=== PATIENT | male | born 1995 | race Caucasian/White ===

== ENCOUNTER 2017-04-21 15:01 | Emergency (ER) | payer MEDICAID ==
[~2017-04-21] VITALS: Ht 180.3 cm; Wt 68.0 kg
[~2017-04-21 15:01] MED LIST: AUGMENTIN PO; NOMEDS XX; TYLENOL W/120 ML/BOT PO
--- OUTSIDE RECORDS SUMMARY | 2017-04-21 15:23 | External Medical Summary Rpt ---
Author Author , Organization [employer] Address Unknown Phone Unavailable Care Team Providers Care Office Clin Asst Name Role Phone ASLAM UZM, ASLAM UZM Unavailable Unavailable ASLAM UZM, ASLAM UZM Unavailable Unavailable BEINEKE SAMMY, BEINEKE Unavailable Unavailable SAMMY [facility], Unavailable Unavailable [facility] NEMO LEO Unavailable Unavailable LYDIA [facility] Unavailable Unavailable HOSPITA, [facility] SOMERS, SOMERS Unavailable Unavailable [facility] Un[facility] Unavailable INC, [facility] Unavailable Unavailable [facility], [facility] Aditi Chester MD, Unavailable Unavailable Aditi [facility], Unavailable Unavailable PLL, [facility], [facility] Unavailable Unavailable EMERGENCY PHYS, [facility] NIGHAT HEA, NIGHAT Unavailable Unavailable HEA NIGHAT HEA, NIGHAT Unavailable Unavailable HEA Purpose Continuity of Care Document - 03-03-2013 through 2016 Problems Code Diagnosis DOS Provider Status I880 NONSPECIFIC 11-04-2016 [facility] LYMPHADENIT IS R102 PELVIC AND 11-04-2016 [facility] EMERGENCY PAIN PHYS R1030 LOWER 11-04-2016 [facility] [place] [facility] PAIN UNSPECIFIED R1084 GENERALIZED 11-04-2016 [facility] [facility] R109 UNSPECIFIED 11-04-2016 [facility] EMERGENCY PAIN PHYS R110 NAUSEA 11-04-2016 [facility] Z720 TOBACCO USE 11-04-2016 [facility]76 PAIN IN 09-05-2016 [facility] [id number] SPRAIN UNS 09-05-2016 [facility] HAND INITIAL ENC [id number] LACERATION 03-14-2016 NIGHAT HEA W/O FB OTHER PART HEAD INITIAL ENC [id number] PAIN IN 02-08-2016 ASLAM UZM RIGHT WRIST [id number] UNSPECIFIED 02-08-2016 ASLAM UZM SPRAIN RIGHT WRIST INITIAL ENCOUNTER 846.0 846.0 03-03-2013 Henri SPRAIN [facility] 847.0 847.0 03-03-2013 Henri SPRAIN OF [facility] 850.0 850.0 03-03-2013 Henri CONCUSSION [facility] W/O [facility] E849.4 E849.4 03-03-2013 Henri ACCID IN [facility] AREA E917.0 E917.0 03-03-2013 Henri STRUCK IN [facility] Allergies, Adverse Reactions, Alerts Type Drug Allergy Adverse Reaction to Substance Substance Reaction Severity No Known Allergies - Unknown Mild Nka Vital Signs 03-03-2013 20:53 Name Value Interpretat Reference Comment ion Range BP 84 mm[Hg] Diastolic BP Systolic 157 mm[Hg] Heart 62 /min Rate/Pulse Procedures Procedure [place] [address] [facility] & 7 RADIOLOGY PELVIS W/CONTRAS T MATERIAL RADEX 48440 NIKKIE GERARDOINEKE HAND 6 MEDICAL SAMMY MINIMUM 3 IMAGING VIEWS ASS SIMPLE 66532 NIGHAT NIGHAT REPAIR 6 HEA HEA F/E/E/N/L /M 2.5CM/< RADEX 99081 ASLAM UZM ASLAM UZM WRIST 6 COMPLETE MINIMUM 3 VIEWS Encounters Encounter Start End Date Code Location Performer Type Date HOSPITAL [facility] - 7 7 N OUTPATIEN COMMUNTIY T HOSPITA EMERGENCY [address]16 [facility] 7 7 N DEPARTMEN COMMUNTIY T VISIT HOSPITA HIGH/URGE NT SEVERITY [facility]OSPITAL [facility] - 6 6 [facility] OUTPATIEN INC T EMERGENCY 43239 [facility] 6 6 [facility] DEPARTMEN INC T VISIT LOW/MODER SEVERITY EMERGENCY 95150 [facility] CHE[facility] 6 6 PHYSICIAN LYDIA [facility] S, PLLC T VISIT MODERATE SEVERITY EMERGENCY 42659 NIGHAT DISLA 6 6 MARC WILLETT T VISIT LOW/MODER SEVERITY OFFICE 08433 CODY LUNDBERG 6 6 T NEW 30 MINUTES Emergency JOSÉ MNAUEL Chester MD (ER) 3 20:15 3 20:58 [facility]
--- OUTSIDE RECORDS SUMMARY | 2017-04-21 15:23 | External Medical Summary Rpt ---
Author Author , Organization [employer] Address Unknown Phone Unavailable Care Team Providers Care Lozenge Dough Mixer Name Role Phone ASLAM UZM, ASLAM UZM Unavailable Unavailable ASLAM UZM, ASLAM UZM Unavailable Unavailable BEINEKE SAMMY, BEINEKE Unavailable Unavailable SAMMY [facility], Unavailable Unavailable [facility] NEMO LEO Unavailable Unavailable LYDIA [facility] Unavailable Unavailable HOSPITA, [facility] SOMERS, SOMERS Unavailable Unavailable [facility] Unavailable Unavailable INC, [facility] Unavailable Unavailable [facility], [facility] Aditi Chester MD, Unavailable Unavailable Aditi [facility], Unavailable Unavailable PLL, [facility], [facility] Unavailable Unavailable EMERGENCY PHYS, [facility] NIGHAT HEA, NIGHAT Unavailable Unavailable HEA NIGHAT HEA, NIGHAT Unavailable Unavailable HEA Purpose Continuity of Care Document - 03-03-2013 through 2016 Problems Code Diagnosis DOS Provider Status I880 NONSPECIFIC 11-04-2016 [facility] PH[facility] LYMPHADENIT IS R102 PELVIC AND 11-04-2016 [facility] EMERGENCY PAIN PHYS R1030 LOWER 11-04-2016 [facility] [place] [facility] PAIN UNSPECIFIED R1084 GENERALIZED 11-04-2016 [place] [facility] R109 UNSPECIFIED 11-04-2016 [facility] EM[facility]GENCY PAIN PHYS R110 NAUSEA 11-04-2016 [facility] Z720 TOBACCO USE 11-04-2016 [facility] PAIN IN 09-05-2016 [facility] [id number] SPRAIN UNS 09-05-2016 [facility] HAND INITIAL ENC [id number] LACERATION 03-14-2016 NIGHAT HEA W/O FB OTHER PART HEAD INITIAL ENC [id number] PAIN IN 02-08-2016 ASLAM UZM RIGHT WRIST [id number] UNSPECIFIED 02-08-2016 ASLAM UZM SPRAIN RIGHT WRIST INITIAL ENCOUNTER 846.0 846.0 03-03-2013 Henri SPRAIN [facility] 847.0 847.0 03-03-2013 Henri SPRAIN OF [facility] 850.0 850.0 03-03-2013 Henri CONCUSSION [facility] W/O [facility] E849.4 E849.4 03-03-2013 Henri ACCID IN [facility] AREA E917.0 E917.0 03-03-2013 Henri STRUCK IN [facility] Allergies, Adverse Reactions, Alerts Type Drug Allergy Adverse Reaction to Substance Substance Reaction Severity No Known Allergies - Unknown Mild Nka Vital Signs 03-03-2013 20:53 Name Value Interpretat Reference Comment ion Range BP 84 mm[Hg] Diastolic BP Systolic 157 mm[Hg] Heart 62 /min Rate/Pulse Procedures Procedure [place] [address] [facility] [place] [facility] & 7 RADIOLOGY PELVIS W/CONTRAS T MATERIAL RADEX 42064 NIKKIE GERARDOINEKE HAND 6 MEDICAL SAMMY MINIMUM 3 IMAGING VIEWS ASS SIMPLE 74983 NIGHAT NIGHAT REPAIR 6 HEA HEA F/E/E/N/L /M 2.5CM/< RADEX 43149 ASLAM UZM ASLAM UZM WRIST 6 COMPLETE MINIMUM 3 VIEWS Encounters Encounter Start End Date Code Location Performer Type Date HOSPITAL [facility] - 7 7 N OUTPATIEN COMMUNTIY T HOSPITA EMERGENCY 03285 [facility] 7 7 N DEPARTMEN COMMUNTIY T VISIT HOSPITA HIGH/URGE NT SEVERITY [facility]OSPITAL [facility] - 6 6 [facility] OUTPATIEN INC T EMERGENCY 59645 [facility] 6 6 [facility] DEPARTMEN INC T VISIT LOW/MODER SEVERITY EMERGENCY 89074 [facility] CHE[facility] 6 6 PHYSICIAN LYDIA [facility] T VISIT MODERATE SEVERITY EMERGENCY 37717 NIGHAT DISLA 6 6 MARC WILLETT T VISIT LOW/MODER SEVERITY OFFICE 03120 CODY LUNDBERG 6 6 T NEW 30 MINUTES Emergency JOSÉ MANUEL Chester MD (ER) 3 20:15 3 20:58 [facility]
--- OUTSIDE RECORDS SUMMARY | 2017-04-21 15:24 | External Medical Summary Rpt ---
Author Author [employer] Santos, [employer] Organization [employer] Address Unknown Phone Unavailable
--- OUTSIDE RECORDS SUMMARY | 2017-04-21 15:24 | External Medical Summary Rpt ---
Author Author , Organization [employer] Address Unknown Phone Unavailable Purpose Continuity of Care Document - 1995 through 2016 Immunization Name Date Route CVX Reacti Commen Provid Is Given on t er Refuse d DTP-Hi Histor H149 No b 1995 ical Inform ation - Source Unspec ified Polio- Histor H149 No OPV 1995 ical Inform ation - Source Unspec ified
--- OUTSIDE RECORDS SUMMARY | 2017-04-21 15:24 | External Medical Summary Rpt ---
Author Author , Organization [employer] Address Unknown Phone Unavailable Care Team Providers Care Auto Roller Name Role Phone ASLAM UZM, ASLAM UZM Unavailable Unavailable ASLAM UZM, ASLAM UZM Unavailable Unavailable [facility], Unavailable Unavailable [facility] [place] Unavailable Unavailable NEMO LYDIA, NEMO Unavailable Unavailable LYDIA [facility] Un[facility] Unavailable [facility], [facility] SOMERS, SOMERS Unavailable Unavailable [facility] Un[facility] INC, [facility] Unavailable Unavailable IM[facility], [facility], Unavailable Unavailable PLLC, [facility], [facility] Unavailable Unavailable EMERGENCY PHYS, [facility] EM[facility]GENCY PHYS NIGHAT HEA, NIGHAT Unavailable Unavailable HEA NIGHAT HEA, NIGHAT Unavailable Unavailable HEA Purpose Continuity of Care Document - 02-08-2016 through 2016 Problems Code Diagnosis DOS Provider Status I880 NONSPECIFIC 11-04-2016 [facility] EMERGENCY PHYS LYMPHADENIT IS R102 PELVIC AND 11-04-2016 [facility]ERGENCY PAIN PHYS R1030 LOWER 11-04-2016 [facility] [place] [facility] PAIN UNSPECIFIED R1084 GENERALIZED 11-04-2016 [place] [facility] HOSPITA R109 UNSPECIFIED 11-04-2016 [facility] N EMERGENCY PAIN PHYS R110 NAUSEA 11-04-2016 [facility] Z720 TOBACCO USE 11-04-2016 [facility] M37156 PAIN IN 09-05-2016 [facility] [id number] SPRAIN UNS 09-05-2016 [facility] HAND INITIAL ENC [id number] LACERATION 03-14-2016 NIGHAT TRAN W/O FB OTHER PART HEAD INITIAL ENC D43261 PAIN IN 02-08-2016 ASLAM UZM RIGHT WRIST [id number] UNSPECIFIED 02-08-2016 ASLAM UZM SPRAIN RIGHT WRIST INITIAL ENCOUNTER Procedures Procedure [place] [address] [facility] [place] [facility] ABD[facility]EN & 7 RADIOLOGY PELVIS W/CONTRAS T MATERIAL RADEX 08139 [facility] HAND 6 [facility] MINIMUM 3 INC INC VIEWS SIMPLE 33545 NIGHAT DISLA REPAIR 6 HEA HEA F/E/E/N/L /M 2.5CM/< RADEX 05963 ASLAM UZM ASLAM UZM WRIST 6 COMPLETE MINIMUM 3 VIEWS Encounters Encounter Start End Date Code Location Performer Type Date EMERGENCY [address] [facility] 7 [facility] PHYS HIGH/URGE NT SEVERITY [facility] [place] [address] [facility]63 R[facility] CHESTER 6 6 [facility] T VISIT MODERATE SEVERITY EMERGENCY 68480 [facility] 6 6 MEM [facility] DEPARTMEN INC T VISIT LOW/MODER SEVERITY HOSPITAL [facility] - 6 6 [facility] OUTPATIEN INC T EMERGENCY 46999 NIGHAT DISLA 6 6 HEA HEA DEPARTMEN T VISIT LOW/MODER SEVERITY OFFICE 67291 ASLAM UZM OUTPATIEN 6 6 T NEW 30 MINUTES
--- OUTSIDE RECORDS SUMMARY | 2017-04-21 15:24 | External Medical Summary Rpt ---
Author Author , Organization [employer] Address Unknown Phone Unavailable Care Team Providers Care Manager Diesel Name Role Phone ASLAM UZM, ASLAM UZM Unavailable Unavailable ASLAM UZM, ASLAM UZM Unavailable Unavailable [facility], Unavailable Unavailable [facility] [place] Unavailable Unavailable NEMO LYDIA, NEMO Unavailable Unavailable [facility]IA [facility], [facility] SOMERS, SOMERS Unavailable Unavailable [facility] Unavailable Unavailable INC, [facility] Unavailable Unavailable IM[facility]ING [facility], [facility], Unavailable Unavailable PLLC, [facility], [facility] Unavailable Unavailable EMERGENCY PHYS, [facility] NIGHAT HEA, NIGHAT Unavailable Unavailable HEA NIGHAT HEA, NIGHAT Unavailable Unavailable HEA Purpose Continuity of Care Document - 02-08-2016 through 2016 Problems Code Diagnosis DOS Provider Status I880 NONSPECIFIC 11-04-2016 [facility] M[facility] N EMERGENCY PHYS LYMPHADENIT IS R102 PELVIC AND 11-04-2016 [facility] EMERGENCY PAIN PHYS R1030 LOWER 11-04-2016 [facility] [place] ABDOM[facility] RADIOLOGY PAIN UNSPECIFIED R1084 GENERALIZED 11-04-2016 [place] [facility]IN HOSPITA R109 UNSPECIFIED 11-04-2016 [facility] ABDOM[facility] N EMERGENCY PAIN PHYS R110 NAUSEA 11-04-2016 [facility] Z720 TOBACCO USE 11-04-2016 [facility] F95307 PAIN IN 09-05-2016 [facility] [facility] [id number] SPRAIN UNS 09-05-2016 [facility] HAND INITIAL ENC [id number] LACERATION 03-14-2016 NIGHAT TRAN W/O FB OTHER PART HEAD INITIAL ENC B18001 PAIN IN 02-08-2016 ASLAM UZM RIGHT WRIST [id number] UNSPECIFIED 02-08-2016 ASLAM UZM SPRAIN RIGHT WRIST INITIAL ENCOUNTER Procedures Procedure DOS [place] [address] [facility] [place] [facility] ABDOMEN & 7 RADIOLOGY PELVIS W/CONTRAS T MATERIAL RADEX 02361 [facility] RUFF HAND 6 [facility] MINIMUM 3 INC INC VIEWS SIMPLE 08122 NIGHAT DISLA REPAIR 6 HEA HEA F/E/E/N/L /M 2.5CM/< RADEX 78159 ASLAM UZM ASLAM UZM WRIST 6 COMPLETE MINIMUM 3 VIEWS Encounters Encounter Start End Date Code Location Performer Type Date EMERGENCY [address] [facility] HIGH/URGE NT SEVERITY [facility] [place] [address] [facility] 189[address] R[facility] CHE[facility] 6 6 [facility] T VISIT MODERATE SEVERITY EMERGENCY 67959 [facility] 6 6 MEM [facility] DEPARTMEN INC T VISIT LOW/MODER SEVERITY HOSPITAL [facility] - 6 6 [facility] OUTPATIEN INC T EMERGENCY 96597 NIGHAT DISLA 6 6 HEA HEA DEPARTMEN T VISIT LOW/MODER SEVERITY OFFICE 90546 ASLAM UZM OUTPATIEN 6 6 T NEW 30 MINUTES
--- NOTE | 2017-04-21 15:40 | Urgent Treatment Center Report ---
History of Present Issue Date/Time Seen by Provider 04/21/17 1531 Visit Reason Pt arrived:Walked Presenting Problem:R FOOT PAIN X1 YEAR , IN THE BALL OF THE FOOT Location if Accident: Onset of symptoms date/time:04/21/1603/02/1700 or onset unknown for: Have you (or family members/close friends) recently traveled outside the [place]? N If Yes, where/when: Have you had exposure to infectious disease within the past month? TB? Other? Specify: c/o pain in ball of right foot x 1 year. Recalls the injury that occurred in Spring 2015. reports was playing baseball and while running the bases, stepped on edge of base w/ ball of right foot. Continued to run but remembers pain immediately after. Soaked in epsom salt. Slightly inproved. Mild intermittent but daily pain since that has become worse the last 2 months. Most severe in the morning, making it hard to walk. sharp and radiates from ball to arch at times. Describes swelling in ball of foot first thing as well that improves throughout the day. Hasn't taken any medication for pain. "not a medication taker". Denies limited ROM and no N/T. Source patient Exam Limitations no limitations ALLERGIES Coded Allergies: cefaclor (From [facility]) (Intermediate, VOMITING AND RASH 09/05/16) History Medical History General CAD? No Angina: No WV: No Hypertension? No Hyperlipidemia? No CHF? No DVT? No PE? No COPD? No Asthma? No Anemia? No GERD? No Gastric ulcers? No GI Bleed? No Hernia? No Thyroid Problems? No Hypothyroidism? No CVA? No Seizures? No Diabetes? No Renal Insuffiency? No UTI? No Stones? No BPH? No GB Disease: No Nephritic Syndrome? No Asplenia? No Hepatitis? No Sickle Cell Disease? No Arthritis? No Migraines? No Cataracts? No Glaucoma? No MRSA? Yes HIV? No TB? No Anxiety? No Depression? No Cancer? No More? No Immunization HX DT/Tetanus 1-4 YRS Surgical Hx Previous Surgery?Y EARTUBES ADENOIDS Social History Smoking Hx Smoker: Current Every Day Smoker Tobacco: Yes Type Cigarettes Packs/day < 1 Pack Alcohol Alcohol: No Review of Systems All Other Systems Reviewed and Negative Constitutional denies fever Musculoskeletal see HPI, denies other (no heel, ankle, leg pain) Skin denies change in color, denies lumps, denies rash Psychiatric/Neurological see HPI Physical Exam Vital Signs Vital Signs Date Time Temp Pulse Resp B/P Pulse O2 O2 Flow FiO2 Ox Delivery Rate 04/21 1602 98.7 82 20 126/79 98 04/21 1520 98.7 82 20 126/79 98 04/21 1511 98.7 82 20 126/79 98 General Appearance normal appearance, no apparent distress Respiratory Status No: respiratory distress. Cardiovascular no peripheral edema Peripheral Pulses Pulses normal Yes (pedal) Back gait normal Extremities normal range of motion (right digits and ankle), normal inspection ( right foot and ankle), mild tenderness right ball of foot only in center, no heel or arch pain Strength 5 Lower Ext (L), 5 Lower Ext (R) (foot 5/5) Neurologic alert, oriented x 3 Skin normal color, warm/dry Medical Decision Making LABS/Meds/Orders Pt receiving controlled substance in ED? No Results/Orders Orders Procedure Date/time Status FOOT-RT-3 VIEWS 04/21 1526 Active XRAY/CT/US XRAY/CT/US XRAY foot XR interpretation by reviewed by me Xray Results no fracture seen [facility] Progress Notes Date 04/21/17 Time 1541 Comment in xray Departure Departure Time of Disposition 1558 Disposition DC Home or Self Care(routine) Clinical Impression Primary Impression: Metatarsalgia of right foot Condition STABLE Referrals JARRETT SOL DPM For new, worsening or persistant symptoms despite treatment Patient Instructions DI for Metatarsalgia Additional Instructions * weight bearing as tolerated * Rest * ice 15-20 mins 3-4 times a day. Consider iced water bottle as we discussed. * Naproxen twice a day. take with meals. No additional anti-inflammatories like motrin, aleve, advil with the above amount of ibuprofen. You CAN still take Tylenol every 4 hours as needed if you need something more for pain. Follow up IMMEDIATELY for new or worsening symptoms OR no noticeable improvement Discharge Counseling Counseled pt/family regarding diagnosis, test results, medications/RX, home care, follow up needs Prescriptions Current Visit Scripts NAPROXEN (NAPROSYN 500MG TAB) 500 MG PO BID #28 TAB take with food at 4175
[2017-04-21] MEDS ORDERED: NAPROSYN 500MG500 MG PO (16:01)
[2017-04-21 16:02] VITALS: BP 126/79
--- NOTE | 2017-04-21 20:28 | RADIOLOGY REPORT PS360 ---
FOOT-RT-3 VIEWS HISTORY: Fourth metatarsal pain PAIN IN THE SOLE ORDERING PHYSICIAN: DEVIN BALLESTEROS APRN PATIENT AGE: 21 years COMPARISON: 10/16/2015 FINDINGS: No fracture or dislocation. No lytic or blastic change. There is normal mineralization.. The joint spaces are well-preserved. No significant degenerative/arthritic changes. No erosive changes evident. IMPRESSION: Negative right foot, no acute finding with no change
== END 2017-04-21 16:06 | disposition home or self-care (01) ==
LOC: ER 15:01 → UTC 15:21 → ER 15:21 → UTC 16:06
DX: M77.41 Metatarsalgia, right foot (principal); Z72.0 Tobacco use